=== PATIENT | female | born 1980 | race Caucasian/White ===

== ENCOUNTER 2017-05-22 08:03 | Observation (INO) ==
[2017-05-22] MEDS ORDERED: ONDANSETRON 4 MG/2 ML VIAL IV STA (08:24)
[2017-05-22] MEDS ORDERED: ONDANSETRON 4 MG/2 ML VIAL ONE ×3 (09:37→16:00)
[2017-05-22 09:59] LABS: Basophils % 0.4 % (0.0-0.8); Eosinophils # 0.1 10*3/uL (0.0-0.87); Eosinophils % 0.8 % (0.00-10.9); Hematocrit 38.2 VOL% (35.7-47.0); Immature Granulocytes % 0.4 %; Immature Granulocytes Absolute 0.04 #; Lymphocytes # 1.8 10*3/uL (1.4-4.0); Lymphocytes % 20.4 % (21.3-54.2); Mean Corpuscular Hemoglobin 31 PG (27-34); Mean Corpuscular Volume 89.9 FL (87-102); Mean Platelet Volume 10.5 FL (9.6-12.0); Monocytes # 0.5 10*3/uL (0.11-0.8); Monocytes % 5.8 % (1.7-12.7); Neutrophils # 6.5 10*3/uL (1.4-7.4); Neutrophils % 72.2 % (38.7-73.9); Platelet Count 272 T/CUMM (130-400); Red Blood Count 4.25 MC/CUMM (3.8-5.5); Red Cell Distribution Width 12.6 % (9.3-17.3)
[2017-05-22 10:06] LABS: Apearance,Urine Slightly Hazy (Clear); Bacteria,Urine Occasional /HPF (Few); Bilirubin,Urine Negative (Negative); Blood, Urine Negative (Negative); Glucose,Urine (UA) Negative (Negative); Ketones,Urine Negative (Negative); Mucus,Urine Occasional /LPF (Occasional); Nitrite,Urine Negative (Negative); Protein,Urine 30 MG/DL; RBC,Urine 2 /HPF (0-4); Squamous Epithelial Cell,Urine Occasional /HPF (0-10); Urine Color Yellow (Yellow); Urine Specific Gravity 1.024 (1.001-1.035); Urine Urobilinogen < 2.0 EU/DL (0.2-1.0); WBC,Urine <1 /HPF (0-6)
[2017-05-22 10:23] LABS: Albumin 3.9 G/DL (3.4-5.0); Bilirubin,Total 0.4 MG/DL (0.2-1.0); Calcium 8.7 MG/DL (8.5-10.1); Lactic Acid 0.9 MMOL/L (0.4-2.0); Osmolality,Calculated 275.5 MOS/KG (273-304); Total Protein 7.3 G/DL (6.4-8.3)
[2017-05-22] MEDS ORDERED: cefOXitin 2,000 MG in SYRINGE 1 EACH IV ONE (13:59)
[2017-05-22] MEDS: LACTATED RINGERS 1,000 ML IV SCH ×2 (14:16→15:15)
[2017-05-22] MEDS ORDERED: PROPOFOL 200 MG/20 ML VIAL IV ONE (15:40)
[2017-05-22] MEDS ORDERED: GLYCOPYRROLATE 0.4 MG/2 ML VIAL ONE (15:41)
[2017-05-22] MEDS ORDERED: MIDAZOLAM 2 MG/2 ML VIAL ONE (15:41)
[2017-05-22] MEDS ORDERED: fentaNYL 100 MCG/2 ML VIAL ONE (15:41)
[2017-05-22] MEDS ORDERED: NEOSTIGMINE 10 MG/10 ML VIAL ONE (15:41)
[2017-05-22] MEDS ORDERED: SUCCINYLCHOLINE 200 MG/10 ML VIAL ONE (15:41)
[2017-05-22] MEDS ORDERED: SEVOFLURANE 1 UNIT/15 MINUTE INH ONE (15:41)
[2017-05-22] MEDS ORDERED: ROCURONIUM 100 MG/10 ML VIAL IV ONE (15:42)
[2017-05-22] MEDS ORDERED: PROMETHAZINE 25 MG/1 ML VIAL ONE (16:07)
[2017-05-22] MEDS ORDERED: PROMETHAZINE INJ 25 MG in SODIUM CHLORIDE 0.9% 50 ML IV ONE (16:08)
[2017-05-22] MEDS ORDERED: ONDANSETRON 4 MG/2 ML VIAL IV PRN ×2 (16:31→17:38)
[2017-05-22] MEDS ORDERED: HYDROmorphone 2 MG/1 ML VIAL IV PRN (16:31)
[2017-05-22] MEDS ORDERED: MORPHINE 2 MG/1 ML SYRINGE IV PRN (17:38)
[2017-05-22] MEDS: DEXTROSE 5% NACL 0.45% 1,000 ML IV SCH (18:09)
[2017-05-22] MEDS: cefOXitin 2,000 MG in SYRINGE 1 EACH IV SCH (21:02)
[2017-05-23] MEDS: DEXTROSE 5% NACL 0.45% 1,000 ML IV SCH ×4 (02:51→19:12)
[2017-05-23] MEDS: cefOXitin 2,000 MG in SYRINGE 1 EACH IV SCH ×4 (02:54→21:05)
[2017-05-23] MEDS: PANTOPRAZOLE 40 MG TABLET PO SCH (08:59)
[2017-05-23] MEDS: ACETAMINOPHEN 325 MG TABLET PO PRN (11:00)
[2017-05-23] MEDS ORDERED: KETOROLAC 30 MG/1 ML VIAL IV PRN (12:37)
[2017-05-23] MEDS: HYDROmorphone 2 MG/1 ML VIAL IV PRN ×2 (14:46→23:52)
[2017-05-23] MEDS: LACTATED RINGERS 1,000 ML IV SCH (14:47)
[2017-05-23] MEDS: KETOROLAC 30 MG/1 ML VIAL IV SCH (18:39)
[2017-05-24] MEDS: DEXTROSE 5% NACL 0.45% 1,000 ML IV SCH ×4 (03:50→17:07)
[2017-05-24] MEDS: KETOROLAC 30 MG/1 ML VIAL IV SCH ×4 (03:53→18:41)
[2017-05-24] MEDS: cefOXitin 2,000 MG in SYRINGE 1 EACH IV SCH (04:05)
[2017-05-24] MEDS: HYDROmorphone 2 MG/1 ML VIAL IV PRN ×2 (04:20→14:03)
[2017-05-24] MEDS: PANTOPRAZOLE 40 MG TABLET PO SCH (08:52)
[2017-05-24 09:42] LABS: Basophils % 0.4 % (0.0-0.8); Eosinophils # 0.2 10*3/uL (0.0-0.87); Eosinophils % 2.6 % (0.00-10.9); Hematocrit 33.1 VOL% (35.7-47.0); Hemoglobin 11.2 GM/DL (12.0-16.0); Immature Granulocytes % 0.6 %; Immature Granulocytes Absolute 0.04 #; Lymphocytes # 2.2 10*3/uL (1.4-4.0); Lymphocytes % 32.3 % (21.3-54.2); Mean Corpuscular HGB Conc 33.8 GM/DL (32-36); Mean Corpuscular Hemoglobin 31 PG (27-34); Mean Corpuscular Volume 91.2 FL (87-102); Mean Platelet Volume 10.4 FL (9.6-12.0); Monocytes # 0.4 10*3/uL (0.11-0.8); Monocytes % 5.8 % (1.7-12.7); Neutrophils # 4.1 10*3/uL (1.4-7.4); Neutrophils % 58.3 % (38.7-73.9); Platelet Count 236 T/CUMM (130-400); Red Blood Count 3.63 MC/CUMM (3.8-5.5); Red Cell Distribution Width 12.5 % (9.3-17.3); White Blood Count 6.9 T/CUMM (4-12)
[2017-05-24 10:15] LABS: Albumin 3.1 G/DL (3.4-5.0); Bilirubin,Total 0.8 MG/DL (0.2-1.0); Calcium 8.3 MG/DL (8.5-10.1); Osmolality,Calculated 279.3 MOS/KG (273-304); Potassium 3.9 MMOL/L (3.5-5.1); Total Protein 6.1 G/DL (6.4-8.3)
[2017-05-24] MEDS: LACTATED RINGERS 1,000 ML IV SCH (14:02)
[2017-05-25] MEDS: KETOROLAC 30 MG/1 ML VIAL IV SCH ×3 (00:36→13:04)
[2017-05-25] MEDS: DEXTROSE 5% NACL 0.45% 1,000 ML IV SCH ×2 (03:14→11:01)
[2017-05-25] MEDS: PANTOPRAZOLE 40 MG TABLET PO SCH (08:41)
[2017-05-25] MEDS: ACETAMINOPHEN 325 MG TABLET PO PRN (12:05)
[2017-05-25 12:52] VITALS: BP 125/86
== END 2017-05-25 13:35 | disposition home or self-care (01) ==
LOC: N.EDINP 08:03 → N.ED 08:03 → N.4E 13:56
PROVIDERS: ADMIT Surgery; ATTEND Surgery
PROC: LAPCHOL (2017-05-22 14:20)